=== PATIENT | female | born 1955 | race Caucasian/White ===

== ENCOUNTER → 2017-09-13 09:01 | Outpatient (CLI) | payer BC, SELFPAY ==
--- NOTE | 2017-09-13 | DI.MG.S_ITS ---
BILATERAL DIGITAL SCREENING MAMMOGRAM 3D/2D WITH CAD: 09/13/2017 CLINICAL: Routine screening. Comparison is made to exams dated: 08/15/2016 mammogram, 06/11/2015 mammogram, and 12/31/2013 mammogram - [facility]. The tissue of both breasts is heterogeneously dense. This may lower the sensitivity of mammography. Current study was also evaluated with a Computer Aided Detection (CAD) system. There are benign vascular calcifications in both breasts. No significant masses, calcifications, or other findings are seen in either breast. There has been no significant interval change. IMPRESSION: BENIGN There is no mammographic evidence of malignancy. A 1 year screening mammogram is recommended. This exam was interpreted at Station ID: [id number]. NOTE: For mammograms, a report in lay terms will be sent to the patient. Approximately 15% of breast malignancies will not be visualized mammographically. In the management of a palpable breast mass, a negative mammogram must not discourage biopsy of a clinically suspicious lesion. Electronically Signed By: Ivette urban/mark:09/13/2017 11:27:01 letter sent: Normal Exam ACR BI-RADS Category 2: Benign Finding(s) 3342F
== END ==
PROVIDERS: PCP Family Medicine; Visit Provider Family Medicine
DX: Z12.31 Encounter for screening mammogram for malignant neoplasm of breast (principal)
CPT/HCPCS: 77063; 77067

== ENCOUNTER 2017-10-05 06:09 | Emergency (ER) | payer BC, SELFPAY ==
[2017-10-05 06:23] VITALS: BMI 25.7
[2017-10-05 06:48] VITALS: BP 157/80; PULSE 78; RESP 17; TEMP 36.9; O2SAT 97
--- NOTE | 2017-10-05 06:50 | PC.NURSE ---
Pt. reports having no pain at present. She wonders if the 1 gm of Tylenol she took at home had that affect.
[2017-10-05 07:15] LABS: Add Manual Diff / Slide Review NO; Basophils Percent Auto 0.3 % (0-2); Eosinophils Percent Auto 0.9 % (2-4); Hematocrit 41.5 % (36-46); Lymphocytes Percent Auto 20.7 % (25-40); Mean Corpuscular HGB Conc 33.7 % (30-36); Mean Corpuscular Volume 91.9 fL (80-100); Monocytes Percent Auto 8.9 % (3-14); Neutrophils Absolute Auto 7800 /uL (3000-5900); Neutrophils Percent Auto 69.2 % (50-75); Platelet Count 306 X10^3/uL (150-400); Red Blood Cell Count 4.51 X10^6/uL (4.0-5.2); Red Cell Distribution Width 12.9 % (11.6-14.8); White Blood Cell Count 11.3 X10^3/uL (4.5-11.0)
[2017-10-05 07:22] LABS: Alanine Aminotransferase 30 IU/L (9-52); Albumin 4.3 g/dL (3.5-5.0); Albumin Globulin Ratio 1.7 (1.0-2.8); Alkaline Phosphatase 80 U/L (38-126); Aspartate Aminotransferase 35 IU/L (14-36); BUN Creatinine Ratio 32.9 (6-22); Bilirubin Total 0.6 mg/dL (0.2-1.3); Blood Urea Nitrogen 23 mg/dL (7-17); Calcium 9.1 mg/dL (8.4-10.2); Carbon Dioxide 26 mmol/L (22-32); Chloride 101 mmol/L (98-107); Estimated Glomerular Filt Rate > 60.0 mL/min (>60); Globulin 2.6 g/dL (1.7-4.1); Glucose 104 mg/dL (80-110); HEMOLYSIS < 15 (0-50); Lipase 156 U/L (23-300); Potassium 3.9 mmol/L (3.4-5.1); Sodium 139 mmol/L (137-145); Total Protein 6.9 g/dL (6.3-8.2)
--- NOTE | 2017-10-05 07:58 | ED_ITS ---
HPI - Abdominal Pain General Chief Complaint: Abdominal Pain Stated Complaint: pain in lower right abdommen nausea Time Seen by Provider: 10/05/17 07:08 Source: patient Mode of arrival: ambulatory Limitations: no limitations History of Present Illness HPI narrative: Patient is a 61-year-old female presenting with all right lower quadrant pain. She says started around 3:00 a.m.. Home not radiating does not come from the flank. She denies any nausea vomiting or fevers. She has had normal bowel movements. She did take Tylenol at about 5:00 a.m. which she says helped a little. complaint: abdominal pain Onset (ago): hour(s) Pain Consistency: constant Location: RLQ Quality: cramping Radiation: none Migration to: no migration Relieving factors: nothing Exacerbating factors: nothing Related Data Home Medications Medication Instructions Recorded Confirmed Fish Oil (#FISH OIL CONCENTRATE) 1 sgl PO QDAY #0 06/21/11 LEVOTHYROXINE SODIUM (LEVOTHROID) 0.075 mg PO QDAY #0 06/21/11 MULTIVITAMIN 1 cap PO QDAY #0 06/21/11 MULTIVITAMIN (#HAIR JOSE-SUPER) 1 cap PO QDAY #0 06/21/11 OMEPRAZOLE 20 mg PO QDAY #0 06/21/11 [EYE ALLERGY RELIEF] PRN #0 06/21/11 duloxetine [Cymbalta] 60 mg PO QDAY #0 06/21/11 esterified estrogens [Menest] 0.625 mg PO QDAY #0 06/21/11 hydrocodone-acetaminophen [[place]] 1 tab PO Q4PRN #0 06/21/11 nitrofurantoin macrocrystal 50 mg PO HS #0 06/21/11 pseudoephedrine HCl 60 mg PO PRN #0 06/21/11 esterified estrogens [Menest] 0.625 mg PO #0 07/31/12 lorazepam [Ativan] 0.5 mg PO BID #0 07/31/12 Previous Rx's Medication Instructions Recorded hydrocodone-acetaminophen 1 tab PO Q6H PRN #10 tab 10/05/17 ondansetron 4 mg PO Q6H #10 tab 10/05/17 tamsulosin [Flomax] 0.4 mg PO DAILY #7 cap 10/05/17 Allergies Allergy/AdvReac Type Severity Reaction Status Date / Time propoxyphene Allergy Unknown Verified 10/05/17 08:01 milk AdvReac Mild MAKES Verified 10/05/17 08:01 STOMACH HURT; CHEESE [place] Review of Systems Review of Systems GENERAL: Denies chills, fatigue, malaise, fever, sweats, travel HEENT: Denies sinus pain, ear pain, sore throat, difficulty swallowing, neck pain RESPIRATORY: Denies dyspnea, cough, wheezing, hemoptysis, sputum. CARDIOVASCULAR: Denies chest pain, palpitations, orthopnea, edema GASTROINTESTINAL: See HPI : Denies dysuria, frequency, incontinence, hematuria, urinary retention, flank pain. MUSCULOSKELETAL: Denies weakness, joint pain, or bony pain SKIN: No rash, no erythema, no pruritus NEUROLOGIC: Denies weakness, dizziness, headache, numbness, change in speech, confusion PSYCHIATRIC: No concerning psychosocial issues. 12 point review of systems is negative except for those stated above and HPI PFSH Medical History Hypertension (Acute) Surgical History H/O knee surgery (Acute) History of (Acute) Social History Smoking Status: Never smoker Exam Initial Vital Signs Initial Vital Signs: Vital Signs Temperature 98.4 F 10/05/17 06:48 Pulse Rate 78 10/05/17 06:48 Respiratory Rate 17 10/05/17 06:48 Blood Pressure 157/80 H 10/05/17 06:48 Pulse Oximetry 97 10/05/17 06:48 GENERAL: Well-appearing, well-nourished and in no acute distress. HEENT: Head atraumatic,EOMI, pupils reactive, face symmetric, moist mucous membranes CARDIOVASCULAR: Regular rate and rhythm without murmurs, rubs or gallops. RESPIRATORY: Breath sounds equal bilaterally, no wheezes rales or rhonchi. ABDOMEN: Soft, mild right lower quadrant tenderness no guarding no rebound : No CVA tenderness EXTREMITIES: Normal range of motion, no clubbing or edema. Neurovascularly intact NEUROLOGICAL: Alert and oriented x4.Normal gait and speech. Cranial nerves II through XII grossly intact. SKIN: Warm, dry, no laceration, no petechiae, no rashes or lesions. Course Orders Ordered: ED Orders 10/05/17 06:30 Complete Blood Count AUTO DIFF Stat Comprehensive Metabolic Panel Stat Lipase Stat 10/05/17 07:58 CT abdomen pelvis w con Stat Discontinued Medications Ketorolac Tromethamine (Toradol) 30 mg IV NOW ONE Stop: 10/05/17 07:53 Last Admin: 10/05/17 08:02 Dose: 30 mg Vital Signs - 8 hr 10/05/17 06:48 10/05/17 09:18 Temperature 98.4 F Pulse Rate 78 76 Respiratory Rate 17 20 Blood Pressure [Right Arm] 157/80 H 149/79 H Pulse Oximetry 97 100 MDM - Abdominal Pain Medical Records Patient educated about a kidney stone. Recommend follow up with primary care physician to see if she needs of further evaluation by Urology. I discussed all findings with the patient. Education has been performed regarding treatment plan, diagnosis, warning signs and symptoms and all concerns have been addressed. Verbally agree with and understood all of the above. Lab Data Result diagrams: 10/05/17 06:30 10/05/17 06:30 Lab Results 10/05/17 10/05/17 Range/Units 06:30 06:30 WBC 11.3 H (4.5-11.0) X10^3/uL RBC 4.51 (4.0-5.2) X10^6/uL Hgb 14.0 (12.0-16.0) g/dL Hct 41.5 (36-46) % MCV 91.9 (80-100) fL MCH 31.0 (26-34) PG MCHC 33.7 (30-36) % RDW 12.9 (11.6-14.8) % Plt Count 306 (150-400) X10^3/uL Neut % (Auto) 69.2 (50-75) % Lymph % (Auto) 20.7 L (25-40) % [place] % (Auto) 8.9 (3-14) % Eos % (Auto) 0.9 L (2-4) % Baso % (Auto) 0.3 (0-2) % Neut # (Auto) 7800 H (8130-9921) /uL Sodium 139 (137-145) mmol/L Potassium 3.9 (3.4-5.1) mmol/L Chloride 101 (98-107) mmol/L Carbon Dioxide 26 (22-32) mmol/L BUN 23 H (7-17) mg/dL Creatinine 0.70 (0.52-1.04) mg/dL Estimated GFR > 60.0 (>60) mL/min BUN/Creatinine Ratio 32.9 H (6-22) Glucose 104 (80-110) mg/dL Calcium 9.1 (8.4-10.2) mg/dL Total Bilirubin 0.6 (0.2-1.3) mg/dL AST 35 (14-36) IU/L ALT 30 (9-52) IU/L Alkaline Phosphatase 80 (38-126) U/L Total Protein 6.9 (6.3-8.2) g/dL Albumin 4.3 (3.5-5.0) g/dL Globulin 2.6 (1.7-4.1) g/dL Albumin/Globulin Ratio 1.7 (1.0-2.8) Lipase 156 (23-300) U/L Point of care testing: Urine Dip Bedside Urine Glucose Negative Bedside Urine Bilirubin - Negative Bedside Urine Ketone - Negative Urine Specific [place] 1.020 Bedside Urine Occult Blood - Negative Bedside Urine pH 6.0 Bedside Urine Protein - Negative Bedside Urine Urobilinogen - Negative Bedside Urine Nitrite - Negative Bedside Urine Leukocytes - Negative Esterase Imaging Data CT scan - abdomen: Radiologist's impression: PROCEDURE: CT ABDOMEN PELVIS W CON INDICATIONS: sudden onset right lower quad pain last night TECHNIQUE: After the administration of oral and intravenous contrast, 5 mm thick sections acquired from the diaphragms to the symphysis. 5 mm thick coronal and sagittal reformats were performed. For radiation dose reduction, the following was used: automated exposure control, adjustment of mA and/or kV according to patient size. COMPARISON: [facility], CT, ABDOMEN/PELVIS WITH CONTRAST, 11/11/2008, 12: 44. FINDINGS: Image quality: Excellent. ABDOMEN: Lung bases: There is mild atelectasis. Heart size is normal. Postsurgical changes are demonstrated at the diaphragmatic hiatus. Solid organs: Liver demonstrates diffuse relative hypoattenuation compatible with fatty infiltration. Gallbladder appears within normal limits without calcified gallstones. Biliary system is non-dilated. Pancreas enhances normally. Spleen is normal in size and enhancement. No adrenal nodules. There is an obstructing urinary stone at the right ureterovesicular junction measuring up to 6 mm with associated mild right hydroureteronephrosis with perinephric and periureteral stranding and fluid. Mild asymmetric hypoenhancement of the right kidney is also noted. Peritoneum and bowel: Stomach, small bowel, and colon loops are normal in caliber and wall thickness. The appendix is normal in appearance. Colonic diverticulosis is noted without acute diverticulitis. No intraperitoneal free fluid or air. Nodes and vessels: No retroperitoneal or mesenteric adenopathy. Aorta and inferior vena cava are normal in caliber. Miscellaneous: No ventral hernias. PELVIS: Genitourinary: Bladder wall thickness is normal. The uterus is surgically absent. Miscellaneous: No inguinal hernias or adenopathy. Bones: No suspicious bony lesions. No vertebral body compression fractures. IMPRESSION: 1. Obstructing 6 mm distal right urinary stone at the UVJ with mild right hydroureteronephrosis. There is asymmetric perinephric and periureteral fat stranding or fluid as well as asymmetric hypoenhancement of the right kidney. 2. No evidence of appendicitis. Dictated by: Tom Jacob M.D. on 10/05/2017 at 8:20 Approved by: Tom Jacob M.D. on 10/05/2017 at 8:27 Discharge Plan Departure Patient Disposition: Home, Self-Care Clinical Impression: Kidney stone on right side Discharge Date/Time: 10/05/17 09:21 Interventions: ED Discharge Assessment Last Done: 10/05/17 09:20 Instructions: DI for Kidney Stones Activity Restrictions/Additional Instructions: *Increase fluid intake * follow up with her primary care physician in 2-3 days, they may recommend seeing a urologist Strain urine, try to catch stone -If you should have fever, or pain is uncontrolled with medication at home or any other concerning symptoms return to ER for further evaluation MEDICATIONS: Prescriptions faxed to [facility] in [place] Take [place] every 6 hours if needed for severe pain Take Zofran every 4-6 hours if needed for nausea Take Flomax once a day to help with passage of stone, once you have passed the stone, stop taking CONTROLLED SUBSTANCE DISCHARGE (Narcotoic/benzodiazepine) 1. You have been prescribed narcotic medications, it does have acetaminophen/ Tylenol/paracetamol in it so do not take extra Tylenol or Tylenol containing products 2. Please understand that we cannot provide further refills of narcotics, benzodiazepines or controlled substances through the ED and her pain management will need to be through your provider. 3. While on these medications you cannot drive or operate heavy machinery. 4. You cannot sign legal documents or perform any duties such as this. 5. As long as you're taking opiate pain medications he should also be taking a stool softener such as Colace, Dulcolax, MiraLAX or prune juice, to help avoid constipation. Prescriptions: New hydrocodone-acetaminophen 5-325 mg tablet 1 tab PO Q6H PRN (Reason: pain) Qty: 10 RF: 0 tamsulosin [Flomax] 0.4 mg capsule,extended release 24hr 0.4 mg PO DAILY Qty: 7 RF: 0 ondansetron 4 mg tablet,disintegrating 4 mg PO Q6H Qty: 10 RF: 0 No Action duloxetine [Cymbalta] 30 MG capsule,delayed release(DR/EC) 60 mg PO QDAY Qty: 0 RF: 0 [EYE ALLERGY RELIEF] PRN Qty: 0 RF: 0 LEVOTHYROXINE SODIUM (LEVOTHROID) 0.075 mg PO QDAY Qty: 0 RF: 0 MULTIVITAMIN (#HAIR JOSE-SUPER) 1 cap PO QDAY Qty: 0 RF: 0 nitrofurantoin macrocrystal 50 MG capsule 50 mg PO HS Qty: 0 RF: 0 esterified estrogens [Menest] 0.625 MG tablet 0.625 mg PO QDAY Qty: 0 RF: 0 pseudoephedrine HCl 60 MG tablet 60 mg PO PRN Qty: 0 RF: 0 OMEPRAZOLE 20 mg PO QDAY Qty: 0 RF: 0 hydrocodone-acetaminophen [[place]] 5 MG/325 MG tablet 1 tab PO Q4PRN Qty: 0 RF: 0 Fish Oil (#FISH OIL CONCENTRATE) 1 sgl PO QDAY Qty: 0 RF: 0 MULTIVITAMIN 1 cap PO QDAY Qty: 0 RF: 0 esterified estrogens [Menest] 0.625 MG tablet 0.625 mg PO Qty: 0 RF: 0 lorazepam [Ativan] 0.5 MG tablet 0.5 mg PO BID Qty: 0 RF: 0 Referrals: Lona Smith DO [Primary Care Provider] -
[2017-10-05] MEDS: KETOROLAC 60 MG/2 ML VIAL 30 MG IV (08:02)
[2017-10-05 09:18] VITALS: BP 149/79; PULSE 76; RESP 20; O2SAT 100
== END 2017-10-05 09:21 | disposition home or self-care (01) ==
PROVIDERS: Emergency Provider Emergency Medicine; PCP Family Medicine
DX: N20.0 Calculus of kidney (principal)
CPT/HCPCS: 36591; 74177; 80053; 81003; 83690; 85025; 96374; 99283; 99285; J1885; Q9967

== ENCOUNTER → 2017-11-16 09:39 | Outpatient (CLI) | payer BC, SELFPAY ==
--- NOTE | 2017-11-16 | DI.CT.S_ITS ---
PROCEDURE: CT ORBIT BI WO CON INDICATIONS: Right sided eye pain. TECHNIQUE: Noncontrast 2.5 mm axial images acquired through the orbits, with coronal and sagittal reformats. For radiation dose reduction, the following was used: automated exposure control, adjustment of mA and/or kV according to patient size. COMPARISON: [facility], CT, SINUS SCREEN, 10/28/2008, 12:15. FINDINGS: Image quality: Excellent. Orbits: Globes are symmetrical. No metallic foreign bodies. The optic nerves are normal in size. No retrobulbar masses or fat abnormalities. The extra-ocular muscles are normal and symmetrical in appearance. Lacrimal glands are normal in size. Optic chiasm is normal. Intracranial: Visualized portions of the cerebral hemispheres, brainstem, and spinal cord are normal. Bones and sinuses: Visualized calvarium and facial bones appear intact. Visualized sinuses and mastoids are clear. The bilateral deborah bullosa are incidentally noted. IMPRESSION: No significant orbital abnormality is seen on this noncontrast CT. No significant paranasal sinus disease is seen. Bilateral deborah bullosa are incidentally noted. Dictated by: Ascencion Winchester M.D. on 11/16/2017 at 9:31 Approved by: Ascencion Winchester M.D. on 11/16/2017 at 9:33
== END ==
PROVIDERS: PCP Family Medicine; Visit Provider Ophthalmology
DX: H57.11 Ocular pain, right eye (principal); J34.89 Other specified disorders of nose and nasal sinuses
CPT/HCPCS: 70480

== ENCOUNTER → 2018-12-19 08:31 | Outpatient (CLI) | payer BC, SELFPAY ==
--- NOTE | 2018-12-19 | DI.MG.S_ITS ---
BILATERAL DIGITAL SCREENING MAMMOGRAM 3D/2D WITH CAD: 12/19/2018 CLINICAL: Routine screening. Comparison is made to exams dated: 09/13/2017 mammogram, 08/15/2016 mammogram, and 06/11/2015 mammogram - [facility]. The tissue of both breasts is heterogeneously dense. This may lower the sensitivity of mammography. Current study was also evaluated with a Computer Aided Detection (CAD) system. There are benign vascular calcifications in both breasts. No significant masses, calcifications, or other findings are seen in either breast. There has been no significant interval change. IMPRESSION: There is no mammographic evidence of malignancy. A 1 year screening mammogram is recommended. This exam was interpreted at Station ID: [id number]. NOTE: For mammograms, a report in lay terms will be sent to the patient. Approximately 15% of breast malignancies will not be visualized mammographically. In the management of a palpable breast mass, a negative mammogram must not discourage biopsy of a clinically suspicious lesion. Electronically Signed By: Hiram turner/mark:12/20/2018 03:34:09 letter sent: Normal Exam ACR BI-RADS Category 2: Benign Finding(s) 3342F
== END ==
PROVIDERS: PCP Family Medicine; Visit Provider Family Medicine
DX: Z12.31 Encounter for screening mammogram for malignant neoplasm of breast (principal)
CPT/HCPCS: 77063; 77067